=== PATIENT | female | born 1975 | race Hispanic/Latino ===

== ENCOUNTER → 2019-11-20 | Outpatient (CLI) | payer OTHER ==
--- NOTE | 2019-11-20 11:45 | Diagnostic Imaging Report ---
Pelvic ultrasound History: Menorrhagia Comparison: none Findings: Sonographic images obtained via a transabdominal approach. No apparent uterine mass lesion or enlargement. Uterus measures 11.8 x 4.9 x 4.8cm. Endometrial stripe was not well visualized as there is a 2.6 x 1.9 x 2.1 cm isoechoic mass. No free fluid or adnexal mass. No hydrosalpinx. Right ovary measures 2.3 x 1.5 x 2.0cm. Left ovary measures 3.4 x 2.8 x 3.5 cm. Impression: Endometrial 2.6 cm mass may represent a fibroid, although neoplasm is not excluded. Consider MRI or referral to gynecology. Signed by: Chele Roth MD on 11/20/2019 11:42 AM
== END ==
LOC: MAMMO 08:33
PROVIDERS: ATTEND Internal Medicine
DX: Z12.31 Encounter for screening mammogram for malignant neoplasm of breast (principal); N92.0 Excessive and frequent menstruation with regular cycle; R19.09 Other intra-abdominal and pelvic swelling, mass and lump
CPT/HCPCS: 76856; 77067

== ENCOUNTER → 2024-10-16 | Day surgery (SDC) | payer OTHER ==
[~2024-10-16] MED LIST: AMLODIPINE BESYL5 MG PO; FENTANYL CITRATE/PF 100MCG/2 ML INJ ONE; GLUCAGON FOR INJ 1 MG VIAL ONE; HYOSCYAMINE SULFATE 0.5 MG/ML INJ ONE; LACTATED RINGER'S 1,000 ML ONE; LIDOCAINE HCL 2% LOCAL INJ 5 ML SDV VIAL INJ ONE; LIPITOR10 MG PO; METFORMIN HCL500 MG PO; PROPOFOL IV EMULSION 10 MG/ML 20 ML VIAL ONE; PROPOFOL IV EMULSION 50 ML IV ONE
[2024-10-16 12:50] VITALS: TEMP 98.9
[2024-10-16 13:20] VITALS: BP 117/70; PULSE 89; RESP 16; O2SAT 96
== END | disposition home or self-care (01) ==
LOC: OR 10:09
PROVIDERS: ATTEND Internal Medicine Gastroenterology
DX: Z12.11 Encounter for screening for malignant neoplasm of colon (principal); D12.5 Benign neoplasm of sigmoid colon; D12.4 Benign neoplasm of descending colon; D12.8 Benign neoplasm of rectum; D17.5 Benign lipomatous neoplasm of intra-abdominal organs; K57.30 Diverticulosis of large intestine without perforation or abscess without bleeding; K64.8 Other hemorrhoids; R12 Heartburn; Z71.3 Dietary counseling and surveillance; D64.9 Anemia, unspecified; E11.9 Type 2 diabetes mellitus without complications; I10 Essential (primary) hypertension; Z71.89 Other specified counseling; E78.5 Hyperlipidemia, unspecified; F41.9 Anxiety disorder, unspecified; F32.A Depression, unspecified; Z01.810 Encounter for preprocedural cardiovascular examination; Z79.84 Long term (current) use of oral hypoglycemic drugs; Z79.899 Other long term (current) drug therapy; Z68.31 Body mass index [BMI] 31.0-31.9, adult; Z85.819 Personal history of malignant neoplasm of unspecified site of lip, oral cavity, and pharynx; Z92.21 Personal history of antineoplastic chemotherapy
CPT/HCPCS: 45385; 81025; 93005; J1610; J1980; J2003; J2704 ×2; J3010; J7121